=== PATIENT | female | born 1955 | race Caucasian/White ===

== ENCOUNTER 2020-04-04 18:32 | Inpatient (IN) | payer BC ==
[~2020-04-04] VITALS: Ht 170.2 cm; Wt 140.6 kg
--- NOTE | ~2020-04-04 | OP ---
PATIENT NAME: ABILIO PEÑA MEDICAL RECORD: [id number] :57 LOCATION:.[facility] D.[id number] ADMISSION DATE:04/04/20 SURGEON: YUDITH SANCHEZ MD DATE OF OPERATION: 04/07/2020 PREOPERATIVE DIAGNOSES: 1. Acute respiratory failure on the ventilator. 2. COVID-19 positive. 3. Morbid obesity. 4. Diabetes mellitus. 5. Gastroesophageal reflux disease. 6. Chronic obstructive pulmonary disease. POSTOPERATIVE DIAGNOSES: 1. Acute respiratory failure on the ventilator. 2. COVID-19 positive. 3. Morbid obesity. 4. Diabetes mellitus. 5. Gastroesophageal reflux disease. 6. Chronic obstructive pulmonary disease. PROCEDURE: 1. Left subclavian vein triple-lumen central venous line placement. 2. Left radial art line placement. SURGEON: Yudith Sanchez MD REPORT OF PROCEDURE: The patient's left chest was prepped and draped in sterile fashion. A needle was used to cannulate the left subclavian vein and a guidewire was advanced with ease. Over this wire, a dilator was placed followed by the triple lumen catheter. The catheter aspirated nonpulsatile dark blood and flushed easily in all 3 ports. This was sutured in place with 3-0 nylon and dressed appropriately. The patient's left wrist was prepped and draped in sterile fashion. A 20-Urdu Angiocath arterial dart was used to access the radial artery. We got good pulsatile flow from the vessel. This was sutured into place with 3-0 nylons and dressed appropriately. The patient had a good tracing on the display monitor after placement and this correlated with the cuff pressure. COMPLICATIONS: None. CONDITION: Critical. ANESTHESIA: General endotracheal. BLOOD LOSS: Minimal. Procedure done at the bedside. TRANSINT:[id number] Voice Confirmation ID: [id number] DOCUMENT ID: [id number] OPERATIVE REPORT [id number] ABILIO PEÑA CHRISTIAN MD CC: [id number] DICTATION DATE: 04/07/20 105 PROPOSAL ENGINEER: 04/07/2020[address] [facility] [address] [place] [address]
--- NOTE | 2020-04-04 21:30 | NUR ---
PATIENT IS ADMITTED. SHE IS ALERT AND ORIENTATED. SHE IS TRANSFER FOR [facility]. SHE IS POSITIVE FOR COVID 19 AT THAT FAUCILITY.
[2020-04-04] MEDS ORDERED: TRESIBA FL100 UNIT/1 SC (21:45)
[2020-04-04] MEDS ORDERED: SYNTHROID112 MCG PO (21:47)
[2020-04-04] MEDS ORDERED: SYNTHROID125 MCG PO (21:48)
[2020-04-04] MEDS ORDERED: GABAPENTIN300 MG PO (21:50)
[2020-04-04] MEDS ORDERED: CELEXA40 MG PO (21:50)
[2020-04-04] MEDS ORDERED: CRESTOR40 MG PO (21:51)
[2020-04-04] MEDS ORDERED: GLYBURIDE5 M1 PO (21:52)
[2020-04-04 21:53] VITALS: BP 137/72
[2020-04-05] VITALS: BP 160/72
[2020-04-05 04:00] VITALS: BP 154/66
--- NOTE | 2020-04-05 04:04 | NUR ---
PATIENT IS SLEEPING COMFORTABLY IN BED. SHE IS SNORING LOUDLY, SLEEP APNEA A POSSIBLITY. SHE IS 2 LITERS NASAL CANULA. SHE IS NORMAL SINUS ON TELE. WE WILL CONTINUE TO MONITOR HER RESPIRATORY STATUS.
[2020-04-05 05:17] LABS: BASOPHILS 0 % (0-2); EOSINOPHILS 0.2 % (0-7); HEMATOCRIT 37.2 % (36.0-48.0); HEMOGLOBIN 11.5 g/dL (12-16); IMMATURE GRANULOCYTES 0.2 % (0-5); LYMPHOCYTES 22.6 % (15-50); MCH 26.3 pg (26.0-34.0); MCHC 30.9 g/dL (31.0-37.0); MCV 84.9 fL (80.0-100.0); MEAN PLATELET VOLUME 9.2 fL (7.4-10.4); MONOCYTES 5.4 % (2-11); NEUTROPHILS 71.6 % (40-80); PLATELET COUNT 73 10x3/uL (130-400); RBC 4.38 10x6/uL (4.00-5.40); RDW 15.9 % (11.5-14.5); WBC 4.1 10x3/uL (4.8-10.8)
[2020-04-05 05:51] LABS: ANION GAP 12.8 mmol/L (8-16); CALCIUM 7.9 mg/dL (8.5-10.1); CARBON DIOXIDE 24.4 mmol/L (21.0-32.0); CREATININE - SERUM 1.8 mg/dL (0.6-1.3); MAGNESIUM - SERUM 1.7 mg/dL (1.8-2.4); PHOSPHOROUS 3.4 mg/dL (2.5-4.9); POTASSIUM - SERUM 4.2 mmol/L (3.5-5.1)
[2020-04-05 06:41] LABS: PLATELET ESTIMATE DECREASED
--- NOTE | 2020-04-05 08:00 | NUR ---
BREAKFAST TRAY RECIEVED. PT SITTING UP, RR EVEN BUT SOB. PT INCREASED TO 3L NC. SOB INCREASED WITH EXERTION. PT ASSISTED TO BEDSIDE COMMODE. OFFERED BEDPAN AND PT REFUSED. SANDOVAL NOTED WITH CLEAR YELLOW DRAINAGE. PT REQUESTED STAT LOCK BE CHANGED. CHANGED PER REQUEST. ASSISTED BACK TO BED. CALL LIGHT WITHIN REACH. BED IN LOWEST POSITION. WILL CONTINUE TO MONITOR.
[2020-04-05 08:43] VITALS: BP 159/80
--- NOTE | 2020-04-05 10:22 | NUR ---
I have reviewed this patient and I concur with the Shift Assessment completed by the Licensed Practical Nurse today this shift.
[2020-04-05 12:48] LABS: C-REACTIVE PROTEIN 8.8 mg/dL (0.0-0.9)
[2020-04-05 17:45] VITALS: BP 148/91
--- NOTE | 2020-04-05 19:40 | NUR ---
PATIENT IS RESTING COMFORTABLY IN BED. SHE IS ALERT AND ORIENTED. SHE IS ON NASAL CANULA. HE HAS A SANDOVAL. SHE IS UP WITH ASSIST. WE WILL CONTINUE TO MONTIOR HER RESPIRATORY STATUS.
--- NOTE | 2020-04-05 22:45 | NUR ---
PATIENT'S BLOOD SUGAR WAS 497. I GAVE HE 20 UNITS OF INSULIN AND RECHECKED IT A HOUR AND 15 MINUTES LATER. HER BLOOD SUGAR WAS 441. I CALLED DARLING HAYES. HE CHANGED HER SLIDING SCALE HIGH, STARTED HER ON 10 UNITS OF LANTUS, AND CHANGED US TO CHECK HER BLOOD SUGAR EVERY 4 HOURS.
--- NOTE | 2020-04-06 04:10 | NUR ---
PATIENT IS SLEEPING IN BED. HER BLOOD SUGAR HAS BEEN RUNNING HIGH.WE ARE CHECKING HER BLOOD SUGAR EVERY 4 HOURS.
--- NOTE | 2020-04-06 08:00 | NUR ---
PT SITTING UP IN BED, RR EVEN AND UNLABORED. WATER, ORAL CARE PRODUCTS, AND DIET [place] [employer]A RECIEVED PER REQUEST. CALL LIGHT WITHIN REACH. BED IN LOWEST POSITION. WILL CONTINUE TO MONITOR.
[2020-04-06 08:14] VITALS: BP 145/94
[2020-04-06 11:25] LABS: ANION GAP 10.4 mmol/L (8-16); CALCIUM 7.8 mg/dL (8.5-10.1); CARBON DIOXIDE 25.9 mmol/L (21.0-32.0); CREATININE - SERUM 1.8 mg/dL (0.6-1.3); MAGNESIUM - SERUM 1.8 mg/dL (1.8-2.4); PHOSPHOROUS 3.1 mg/dL (2.5-4.9); POTASSIUM - SERUM 4.3 mmol/L (3.5-5.1)
[2020-04-06 12:11] LABS: BASOPHILS 0.2 % (0-2); EOSINOPHILS 0 % (0-7); HEMATOCRIT 36.5 % (36.0-48.0); HEMOGLOBIN 11.6 g/dL (12-16); IMMATURE GRANULOCYTES 0.3 % (0-5); MCH 26.9 pg (26.0-34.0); MCHC 31.8 g/dL (31.0-37.0); MCV 84.5 fL (80.0-100.0); MEAN PLATELET VOLUME 9.5 fL (7.4-10.4); MONOCYTES 3.7 % (2-11); NEUTROPHILS 88.8 % (40-80); RBC 4.32 10x6/uL (4.00-5.40); RDW 15.8 % (11.5-14.5)
[2020-04-06 12:14] LABS: PLATELET COUNT 91 10x3/uL (130-400); WBC 5.7 10x3/uL (4.8-10.8)
[2020-04-06 12:25] VITALS: BP 137/78
[2020-04-06 12:29] LABS: PLATELET ESTIMATE DECREASED
[2020-04-06 13:17] VITALS: BMI 48.5
--- NOTE | 2020-04-06 13:45 | NUR ---
I have reviewed this patient and I concur with the Shift Assessment completed by the Licensed Practical Nurse today this shift.
--- NOTE | 2020-04-06 15:42 | NUR ---
I have reviewed this patient and I concur with the Shift Assessment completed by the Licensed Practical Nurse today this shift.
--- NOTE | 2020-04-06 19:20 | NUR ---
PATIENT IS RESTING COMFORTABLY IN BED. SHE IS ALERT AND ORIENTED. SHE IS ON NASAL CANULA AND TELEMETRY. WE WILL CONTINUE TO MONITOR HER RESPIRATORY STATUS.
[2020-04-06 20:00] VITALS: BP 148/67
[2020-04-07] VITALS (17 sets, daily range): BP systolic 110–160; BP diastolic 46–85; Ht 170.2 cm; Wt 140.6 kg
--- NOTE | 2020-04-07 08:00 | NUR ---
PT CALLED PHONE AND STATED SHE NEEDED TO BE PULLED UP IN BED, UPON ENTERING ROOM, PT IS VERY SOB AND TACHYPNEIC @ 42RR/MIN AND O2 SAT 72% ON 3L. INCREASED TO 6L AND RESPIRATORY CALLED. RESPIRATORY AT BEDSIDE. INHALER RECIEVED. DR. CHU PAGED. PT IS NOW PALE, DIAPHORETIC, AND SHAKING. SHE IS ALERT AND ORIENTED X4. PLACED ON NON REBREATHER AT 15L NC. O2 SAT HOLDING AROUND 85%. RAPID RESPONSE CALLED. SPOKE WITH DR. CHU VIA PHONE. STATED HE WANTED TO INTUBATE AND TRANSFER TO ICU. WHEN ASKED, PT STATED SHE DID NOT WANT TO BE INTUBATED. CASE MANAGEMENT SPOKE WITH DAUGHTER AND SHE STATED SHE WANTED PT TO BE A FULL CODE AND TO DO EVERYTHING FOR HER. DR. CHU AND ICU STAFF MADE AWARE OF SITUATION. BOTH KIMBERLEY AND DR. YI DECIDED TO PROCEED WITH INTUBATION PER DAUGHTER. TRANSFERED TO ROOM 2313. SITUATION.
--- NOTE | 2020-04-07 08:15 | NUR ---
KVNG SPOKE WITH JOAO (DTR) AT [phone] ABOUT CONDITION, AND CODE STATUS. JOAO STATES HER MOTHER NEVER WANTED TO BE ON A RESPIRATOR, BUT SHE AND HER UNKLE ( PT BROTHER) WANTS EVERY THING DONE. CM PROVIED EMOTIONAL SUPPORT. STATED THE VISITING HOURS IN THE ICU IS VERY LIMITED. STATED IT COULD TAKE SEVERAL HOURS FOR THE PATIENT TO BECOME STABALIZED AND THE ICU NURSE WOULD CALL HER WITH UPDATED.
--- NOTE | 2020-04-07 09:00 | NUR ---
PT ARRIVED IN ICU. DR SINHA IN ROOM. PT INTUBATED. VERSED AND FENTANYL GIVEN. DIPROVAN STARTED. ALL MONITORING EQUIPMENT ATTACHED AND ALARMS SET.
[2020-04-07 10:59] LABS: BASOPHILS 0.2 % (0-2); EOSINOPHILS 0 % (0-7); HEMATOCRIT 32.5 % (36.0-48.0); HEMOGLOBIN 10.3 g/dL (12-16); IMMATURE GRANULOCYTES 0.5 % (0-5); LYMPHOCYTES 5.9 % (15-50); MCH 26.7 pg (26.0-34.0); MCHC 31.7 g/dL (31.0-37.0); MCV 84.2 fL (80.0-100.0); MEAN PLATELET VOLUME 9.8 fL (7.4-10.4); MONOCYTES 2.9 % (2-11); NEUTROPHILS 90.5 % (40-80); PLATELET COUNT 107 10x3/uL (130-400); RBC 3.86 10x6/uL (4.00-5.40); RDW 15.8 % (11.5-14.5)
[2020-04-07 11:11] LABS: ANION GAP 12.5 mmol/L (8-16); CALCIUM 7.8 mg/dL (8.5-10.1); CARBON DIOXIDE 22.6 mmol/L (21.0-32.0); CREATININE - SERUM 1.9 mg/dL (0.6-1.3); MAGNESIUM - SERUM 1.5 mg/dL (1.8-2.4); POTASSIUM - SERUM 4.1 mmol/L (3.5-5.1)
[2020-04-07 11:12] LABS: PHOSPHOROUS 2.1 mg/dL (2.5-4.9)
--- NOTE | 2020-04-07 12:22 | NUR ---
Nutrition follow-up: Pt now intubated, sedated with propofol @ 42 ml/hr Labs reviewed Wt: 310# Recommend Pulmocare @ 20 ml/hr with increase to 35 ml/hr RDN following.
--- NOTE | 2020-04-07 20:55 | NUR ---
NUMBER DISCONNECTED ON PERSON TO NOTIFY FROM ADMIN DATA
--- NOTE | 2020-04-07 21:45 | NUR ---
SHIFT ASSESSMENT COMPLETED , HS MEDICATIONS RECEIVED . URINE COLLECTED PER ORDER AND DELIVERED TO LAB , ORAL CARE COMPLETED REPOSITIONED FOR COMFOT. VSS CPOC
--- NOTE | 2020-04-07 21:45 | NUR ---
UPDATE GIVEN TO DR CHU REGARDING PATIENT STATUS, NEW ORDERS RECEIVED. DR CHU OK'D FENTANYL ORDER IF NEEDED FOR SEDATION, PATIENT IS VERY SEDATED AT THIS MOMENT WILL NOT START FENTANYL UNLESS NECESSARY
[2020-04-07 23:17] LABS: BILIRUBIN NEGATIVE (NEGATIVE); GLUCOSE NEGATIVE (NEGATIVE); KETONE NEGATIVE (NEGATIVE); NITRITE NEGATIVE (NEGATIVE); RED CELLS - URINE 0-5 /hpf (0-5); UROBILINOGEN NORMAL (NORMAL); WHITE CELLS - URINE 0-5 /hpf (NEGATIVE)
[2020-04-07 23:18] LABS: BACTERIA NONE SEEN /hpf (NEGATIVE)
--- NOTE | 2020-04-07 23:45 | NUR ---
REASSESSMENT COMPLETED SEE FLOWSHEET
[2020-04-08] VITALS (24 sets, daily range): BP systolic 137–169; BP diastolic 51–70
--- NOTE | 2020-04-08 01:35 | NUR ---
HTN NOTED. WILL CONTINUE TO CLOSELY MONITOR
--- NOTE | 2020-04-08 04:20 | NUR ---
REASSESSMENT COMPLETED SEE FLOWSHEET
[2020-04-08 06:21] LABS: BASOPHILS 0.2 % (0-2); EOSINOPHILS 0 % (0-7); HEMOGLOBIN 10.5 g/dL (12-16); IMMATURE GRANULOCYTES 1.2 % (0-5); LYMPHOCYTES 13.9 % (15-50); MCH 26.6 pg (26.0-34.0); MCHC 31.8 g/dL (31.0-37.0); MCV 83.8 fL (80.0-100.0); MEAN PLATELET VOLUME 9.4 fL (7.4-10.4); MONOCYTES 5.5 % (2-11); NEUTROPHILS 79.2 % (40-80); PLATELET COUNT 110 10x3/uL (130-400); RBC 3.94 10x6/uL (4.00-5.40); RDW 16.1 % (11.5-14.5)
[2020-04-08 06:24] LABS: ALBUMIN 1.8 g/dL (3.4-5.0); ANION GAP 14.8 mmol/L (8-16); BILIRUBIN - DIRECT 0.13 mg/dL (0.00-0.30); BILIRUBIN - INDIRECT 0.23 mg/dL (0.00-1.00); BILIRUBIN - TOTAL 0.36 mg/dL (0.2-1.3); CALCIUM 8.2 mg/dL (8.5-10.1); CARBON DIOXIDE 19.2 mmol/L (21.0-32.0); CREATININE - SERUM 1.7 mg/dL (0.6-1.3); MAGNESIUM - SERUM 1.8 mg/dL (1.8-2.4); PHOSPHOROUS 2.2 mg/dL (2.5-4.9); PROTEIN - SERUM 5.8 g/dL (6.4-8.2); WBC 4.2 10x3/uL (4.8-10.8)
--- NOTE | 2020-04-08 11:28 | NUR ---
MOUTH CARE AND TURN. PT SEDATED BUT DOES AWAKEN SKIGHTLY WITH ACTIVITY.
--- NOTE | 2020-04-08 11:52 | NUR ---
DR CHU HERE ON ROUNDS.
--- NOTE | 2020-04-08 16:47 | NUR ---
pt spo2 drop to 72%. rt at bs utilizing ambubag 100%. suction reveals no sputum. dr phelps notified. family notified,guero daughter. daughter states that she is a DNR. ALBUMIN ORDERED AND LEVOPHED ORDERED PRN BP. SBP DECREASED TO 80/50 BUT IS NOW 160/80.
--- NOTE | 2020-04-08 19:32 | NUR ---
dr phelps returned off going nurses page - returned call, new orders received
--- NOTE | 2020-04-08 19:40 | NUR ---
RT AT BEDSIDE ALVEOLI RECRUITMENT MANEUVER PER ORDER - PT 02 SATURATION TEMPORARILY INCREASED TO 98%- PT UNABLE TO MAINTAIN OXYGENATION. SPO2 DROPPED TO 88% AND MAINTAINING. BP, RR, HR ALL WNL. WILL CONTINUE TO CLOSELY MONITOR
--- NOTE | 2020-04-08 19:49 | NUR ---
PT FAMILY MEMBER CALLED AND GIVEN UPDATE ON PATIENT STATUS
--- NOTE | 2020-04-08 20:49 | NUR ---
PAGED DR CHU REGARDING ABG RESULTS
--- NOTE | 2020-04-08 21:11 | NUR ---
PAGED DR CHU THROUGH SERVICE AND PAGER REGARDING PATIENT STATUS
--- NOTE | 2020-04-08 21:18 | NUR ---
DR CHU RETURNED CALL - NEW ORDERS RECEIVED
--- NOTE | 2020-04-08 21:45 | NUR ---
KIMBERLEY RETURNED CALL, RT AT BEDSIDE TO PERFORM 2ND RECRUITMENT MANUEVER AND VENT CHANGES. WILL CONTINUE TO MONITOR
--- NOTE | 2020-04-08 22:45 | NUR ---
UPDATED DR CHU ABOUT PATIENT STATUS AFTER 2ND RECRUITMENT AND PEEP INCREASE. PT MAINTAINING 89-90% SPO2 ON ICU MONITOR. KIMBERLEY GAVE INSTRUCTIONS TO RT ON SHIFT FOR CONTINUED TREATMENT THROUGHOUT THE NIGHT IF PATIENT IS UNABLE TO MAINTAIN 02 SATURATION. WILL CONTINUE TO MONITOR
--- NOTE | 2020-04-08 23:15 | NUR ---
FAMILY CALLED IN AND DID NOT HAVE THE SECURITY CALL IN CODE, HE WANTED TO CHECK PATIENT STATUS, LET HIM KNOW THAT FOR NOW SHE IS STABLE AND WILL CALL IF ANYTHING CRITICAL HAPPENS WITH THE PATIENT THROUGHOUT THE NIGHT
[2020-04-09] VITALS: BP 165/68
--- NOTE | 2020-04-09 00:04 | NUR ---
RT AT BEDSIDE, RECRUITMENT MANUEVER NUMBER 3 ATTEMPTED, PEEP ADJUSTED PER ORDER - SPO2 UP TO 94% WITHIN 10 MINUTES OF MANUEVER - PT UNABLE TO MAINTAIN ADEQUATE 02 SATURATION - DOWN TO 74% PAGED DR CHU THROUGH SERVICE AT THIS TIME
--- NOTE | 2020-04-09 00:14 | NUR ---
DR CHU RETURNED PHONE CALL - INCREASE PEEP TO 16 AND NOTIFY FAMILY
--- NOTE | 2020-04-09 00:15 | NUR ---
ATTEMPTED PHONE CALL TO THE DAUGHTER AND OTHER EMERGENCY CONTACT AT THIS TIME, NO ANSWER LEFT MESSAGE WITH BOTH
--- NOTE | 2020-04-09 00:26 | NUR ---
BOTH FAMILY MEMBERS RETURNED CALL NOTIFIED OF PATIENT STATUS. PT O2 SATURATION 56%
[2020-04-09 01:00] VITALS: BP 171/76
[2020-04-09 02:00] VITALS: BP 152/65
[2020-04-09 03:00] VITALS: BP 98/57
--- NOTE | 2020-04-09 03:05 | NUR ---
DR CHU NOTIFIED OF FAMILY WANTING TO TERMINALLY EXTUBATE PATIENT, ORDER RECEIVED.
[2020-04-09 04:00] VITALS: BP 72/51
--- NOTE | 2020-04-09 04:00 | NUR ---
RESTRAINTS DCD AT THIS TIME, PRE MEDICATION RECEIVED AWAITING RT FOR TERMINAL EXTUBATION
[2020-04-09 05:00] VITALS: BP 83/56
--- NOTE | 2020-04-09 06:31 | NUR ---
CONTACTED [facility] REGARDING ORGAN DONATION - THEY WILL GIVE ME A CALL BACK
--- NOTE | 2020-04-10 13:47 | EC ---
PATIENT:ABILIO PEÑA DATE OF SERVICE: 04/04/20 SEX: F MEDICAL RECORD: [id number] DATE OF : 57 LOCATION:[id number] AGE OF PATIENT: 64 ADMISSION DATE: 04/04/20 REFERRING PHYSICIAN: INTERPRETING PHYSICIAN: CHEPE TAVAREZ MD ECHOCARDIOGRAM REPORT ECHO CHARGES 4 ECHO COMPLETE Date: 04/07/20 CLINICAL DIAGNOSIS: DYSPNEA ECHOCARDIOGRAPHIC MEASUREMENTS (adult normal given) AC root (d.<3.7cm) 2.7 cm LV Septum d (<1.2 cm> 1.4 cm Valve Excursion 1.7 cm LV Septum (systole) 1.8 cm Left Atria (s.<4.0cm> 4.0 cm LVPW d(<1.2cm) 1.1 cm RV (d.<2.3cm) 3.9 cm LVPW (sytole) 1.2 cm LV diastole(<5.6CM) 5.1 cm MV E-F(>70mm/sec) cm LV systole 4.0 cm LVOT Diameter 2.0 cm MV exc.(>10mm) cm Est.ejection fraction (50-75%) % DOPPLER: LVIT cm/sec A 52 cm/sec E 54 cm/sec LA cm/sec RVSP 19.1 mmHg LVOT 89 cm/sec AOP1/2T m/s Asc. Ao 126 cm/sec RVOT 72 cm/sec RA cm/sec PA 91 cm/sec AV Gradient Peak 6.3 mmHg AV Mean 3.7 mmHg AV Area 2.5 cm MV Gradient Peak 2.6 mmHg MV Mean 1.3 mmHg MV Area cm COMMENTS: Lease Picker: Davina [facility] Epic Willow Specialist: 2 Dr. Cadena TAPE# PACS Pericardial Effusion N DATE OF SERVICE: Adequate 2D, color flow imaging, spectral Doppler, and M-Mode. Borderline LVH. LV internal dimension is normal. Wall motion is normal. EF is greater than or equal to 55%. Aortic valve is tricuspid. No evidence of stenosis by Doppler interrogation. Left atrium is normal 4.0 cm. Mitral valve shows no prolapse. Trace MR. Right-sided chambers are grossly normal. Trace TR. ECHOCARDIOGRAM REPORT [id number] ABILIO PEÑA TRANSINT:[id number] Voice Confirmation ID: [id number] DOCUMENT ID: [id number] CHEPE TAVAREZ MD at 1347 CC: [id number] DICTATION DATE: 04/07/20 1356 CALLIOPE PLAYER: 04/08/20 0011 DIS IN 04/09/20 [id number] [place] [address]
--- NOTE | 2020-04-11 12:10 | NUR ---
Per CMS protocol, restraint report logged into data base.
== END 2020-04-09 05:38 | DRG 208 ==
LOC: D.M2 18:32 → D.ICU 18:53 → D.M2 18:53 → D.ICU 04-07 08:55
PROVIDERS: Internal Medicine Pulmonary Disease; ADMIT Family Medicine; ATTEND Family Medicine
PROC: 05H633Z Insertion of Infusion Device into Left Subclavian Vein, Percutaneous Approach (ICD-10-PCS; principal; 2020-04-07)
PROC: 5A1945Z Respiratory Ventilation, 24-96 Consecutive Hours (ICD-10-PCS; 2020-04-07)
PROC: 03HY32Z Insertion of Monitoring Device into Upper Artery, Percutaneous Approach (ICD-10-PCS; 2020-04-07)
PROC: 4A133B1 Monitoring of Arterial Pressure, Peripheral, Percutaneous Approach (ICD-10-PCS; 2020-04-07)
PROC: 4A133J1 Monitoring of Arterial Pulse, Peripheral, Percutaneous Approach (ICD-10-PCS; 2020-04-07)
PROC: 0BH17EZ Insertion of Endotracheal Airway into Trachea, Via Natural or Artificial Opening (ICD-10-PCS; 2020-04-07)
DX: U07.1 COVID-19 (principal); J96.01 Acute respiratory failure with hypoxia; N17.9 Acute kidney failure, unspecified; D64.9 Anemia, unspecified; E78.5 Hyperlipidemia, unspecified; K21.9 Gastro-esophageal reflux disease without esophagitis; E11.40 Type 2 diabetes mellitus with diabetic neuropathy, unspecified; E03.9 Hypothyroidism, unspecified; F32.9 Major depressive disorder, single episode, unspecified; M19.90 Unspecified osteoarthritis, unspecified site